=== PATIENT | female | born 1990 | race African-American/Black ===

== ENCOUNTER → 2016-05-28 | Outpatient (REF) | payer OTHER | LOC: M LAB REF 15:10 | PROVIDERS: ATTEND Advanced Practice Midwife | DX: O62.0 Primary inadequate contractions (principal) ==

== ENCOUNTER 2016-07-01 07:11 | Emergency (ER) | payer OTHER ==
[2016-07-01] MEDS ORDERED: ALBUTEROL SULFATE 2.5 MG/0.5 ML INH NEB SOLN As Ordered ONE (08:02)
--- NOTE | 2016-07-01 08:58 | EDDOCDS ---
Physician Documentation [facility] Name: Stephan Fuller Age: 25 yrs Sex: Female : 1990 Arrival Date: 07/01/2016 Time: 07:11 Bed I4 / M4 Private MD: Disposition: 07/01/16 08:46 Discharged to Home/Self Care. Impression: Acute upper respiratory infection, unspecified, Acute bronchospasm. - Condition is Stable. - Discharge Instructions: Medicines During , Metered Dose Inhaler with Spacer, Upper Respiratory Infection, Adult. - Prescriptions for Albuterol Sulfate 90 mcg/actuation Inhalation HFA Aerosol Inhaler - inhale 2 puff by INHALATION route every 4 hours As needed; 1 Inhaler. Saline Nasal 0.65 % Nasal - spray 2 sprays by INTRANASAL route every 2 hours As needed; 1 bottle. - Medication Reconciliation, Local Pharmacy Hours form. - Follow up: Aida De Dios [facility]; When: Call to arrange an appointment; Reason: Recheck today's complaints, Continuance of care. Follow up: Emergency Department; When: As needed; Reason: Trouble breathing, Worsening of conditions. Follow up: MORENO Cueva; Reason: Continuance of care. - Problem is new. - Symptoms have improved. Historical: - Allergies: No known drug Allergies; - Home Meds: 1. Vitamin Oral tab 1 tab once daily 2. pyridoxine 50 mg Oral tab as needed for Excessive Vomiting in (Last dose: 06/29/2016) 3. Albuterol Inhl 2 puffs PRN (Last dose: 06/30/2016 19:00) - PMHx: Asthma; - PSHx: D & C; - Social history: Smoking status: Patient states was never smoker of tobacco. No barriers to communication noted, The patient speaks fluent Malay, Speaks appropriately for age. - Family history: Not pertinent. - : The pt / caregiver states he / she is not on anticoagulants. Home medication list is obtained from the patient. - Exposure Risk Screening:: None identified. 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 6 in. (167.64 cm) (R); Pain 0/10; 08:56 BP 113 / 62; Pulse 82; Resp 16; Temp 97.5(T); Pulse Ox 97% on R/A; kr3 07:18 Body Mass Index 23.24 (65.32 kg, 167.64 cm) ck1 MDM: 07:42 Albuterol 2.5 mg Nebulizer once ordered. ar2 08:37 [facility] Payment Agreement was scanned into [employer] and attached to record. 5 08:37 Financial registration complete. jp5 08:46 MDI teaching with Spacer ordered. ar2 Administered Medications: 08:05 Drug: Albuterol 2.5 mg [albuterol sulfate 2.5 mg/0.5 mL solution for nebulization (0.5 js11 mL)] Route: Nebulizer; Signatures: Liana De Souza RN RN ck1 Stacy Malik,RICO RN kr3 Ilia Garcia, ROLANDO PAYessi ar2 Jalyn Cortes jp5 Perry Stewart js11 The chart was reviewed and I authenticate all verbal orders and agree with the evaluation and treatment provided.Attachments: 08:37 [facility] Payment Agreement jp5 MTDD
--- NOTE | 2016-07-01 08:58 | EDDOCDS ---
Nurse's Notes [facility] Name: Stephan Fuller Age: 25 yrs Sex: Female : 1990 Arrival Date: 07/01/2016 Time: 07:11 Bed I4 / M4 Private MD: Diagnosis: Acute upper respiratory infection, unspecified;Acute bronchospasm Presentation: 07/01 07:16 Presenting complaint: Patient states: Runny nose and "I can't breathe", since ck1 yesterday. Patient is 8 months . Adult Sepsis Screening: The patient does not have new or worsening altered mentation. Patient's respiratory rate is less than 22. Systolic blood pressure is greater than 100. Patient has a qSOFA score of 0- Negative Sepsis Screen. Suicide/Homicide risk assessment- the patient denies having any suicidal and/or homicidal ideations and does not present with any other emotional, behavioral or mental health complaints. Status: The patient is a dependent. Transition of care: patient was not received from another setting of care. 07:16 Acuity: MORE Level 4 ck1 07:16 Method Of Arrival: Walkin/Carried/Asstd ck1 Triage Assessment: 07:20 General: Appears in no apparent distress, comfortable, Behavior is appropriate for age, ck1 cooperative. Pain: Denies pain. HIV screening NA for this visit Offered previously. Respiratory: Respiratory effort is unlabored, Respiratory pattern is regular, symmetrical. : Denies cramping vaginal bleeding. Derm: Skin is intact, is healthy with good turgor, Skin is normal. 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 Vitamin Oral tab 1 tab once daily 2. pyridoxine 50 mg Oral tab as needed for Excessive Vomiting in (Last dose: 06/29/2016) 3. Albuterol Inhl 2 puffs PRN (Last dose: 06/30/2016 19:00) - PMHx: Asthma; - PSHx: D & C; - Social history: Smoking status: Patient states was never smoker of tobacco. No barriers to communication noted, The patient speaks fluent Danish, Speaks appropriately for age. - Family history: Not pertinent. - : The pt / caregiver states he / she is not on anticoagulants. Home medication list is obtained from the patient. - Exposure Risk Screening:: None identified. Screenin:30 Screening information is obtained from the patient. Fall risk: No risks identified. kr3 Assistance ADL's: requires no assistance with activities of daily living. Abuse/DV Screen: The patient / caregiver reports he/she is: not in a situation that causes fear, pain or injury. Nutritional screening: No deficits noted. Advance Directives: Currently, there is no health care proxy. home support is adequate. Assessment: 07:30 Reassessment: Patient appears in no apparent distress at this time. Pain: Denies pain. kr3 Neurological: Level of Consciousness is awake, alert. EENT: Reports nasal congestion. Respiratory: Airway is patent Respiratory effort is even, unlabored, Breath sounds are coarse bilaterally. Reports cough that is productive. Derm: Skin is normal. 08:57 Reassessment: Patient appears in no apparent distress at this time. General: Appears kr3 comfortable. Respiratory: Respiratory effort is even, unlabored. Derm: Skin is normal. Vital Signs: 07:18 BP 109 / 76; Pulse 96; Resp 18; Temp 96.0(O); Pulse Ox 98% on R/A; Weight 65.32 kg (R); ck1 Height 5 ft. 6 in. (167.64 cm) (R); Pain 0/10; 08:56 BP 113 / 62; Pulse 82; Resp 16; Temp 97.5(T); Pulse Ox 97% on R/A; kr3 07:18 Body Mass Index 23.24 (65.32 kg, 167.64 cm) ck1 Vitals: 07:18 Log In Time: July 01, 2016 at 07:11. ck1 07:30 Heart Tones 132BPM. kr3 ED Course: 07:13 Patient visited by Rom Johnson Reg. pm4 07:13 Patient moved to Waiting pm4 07:17 Triage Initiated ck1 07:20 Patient moved to I4 / M4 ck1 07:27 Ilia Garcia PA-C is PHCP. ar2 07:28 Gómez Persaud MD is Attending Physician. ar2 07:28 Patient visited by Ilia Garcia PA-C. ar2 07:30 The patient / caregiver is instructed regarding the plan of care and ED course. kr3 Accompanied by Family Member, Patient has correct armband on for positive identification. Bed in low position. Call light in reach. Side rails up X 1. 07:31 No IV's were initiated during this patient's visit. No procedures done that require kr3 assistance. 08:36 Patient visited by Alverto Alvarenga. [email or web address] 08:37 [facility] Payment Agreement was scanned into [employer] and attached to record. jp5 08:46 Aida De Dios OB is Referral Physician. ar2 08:46 MORENO Cueva is Referral Physician. ar2 Administered Medications: 08:05 Drug: Albuterol 2.5 mg [albuterol sulfate 2.5 mg/0.5 mL solution for nebulization (0.5 js11 mL)] Route: Nebulizer; RT: 08:05 Initial Med Neb Given as ordered Patient was instructed and evaluated on procedure js11 Patient tolerated procedure well without adverse effect. Oxygen is room air. Respiratory: Breath sounds are diminished bilaterally. Order Results: There are currently no results for this order. Outcome: 08:46 Discharge ordered by Provider. ar2 08:57 Discharge Assessment: patient administered narcotics - no. The following High Risk kr3 Discharge criteria are identified: None. Discharged to home ambulatory, with family. Condition: stable. Discharge instructions given to patient, Instructed on discharge instructions, follow up and referral plans. medication usage, Demonstrated understanding of instructions, medications, Pt was receptive of discharge instructions/ teaching. No special radiology studies were completed. Property sent home with patient. 08:58 Patient left the ED. kr3 Signatures: Liana De Souza,RN RN ck1 Stacy MalikRN RN kr3 Ilia Garcia PA-C PAYessi ar2 Perry Stewart js11 Alverto Alvarenga jml1 Jalyn Cortes jp5 Rom Johnson, Reg Reg pm4 MTDD
--- NOTE | 2016-07-03 09:59 | EDDOCDS ---
Nurse's Notes [facility] Name: Stephan Fuller Age: 25 yrs Sex: Female : 1990 Arrival Date: 07/01/2016 Time: 07:11 Bed I4 / M4 Private MD: Diagnosis: Acute upper respiratory infection, unspecified;Acute bronchospasm Presentation: 07/01 07:16 Presenting complaint: Patient states: Runny nose and "I can't breathe", since ck1 yesterday. Patient is 8 months . Adult Sepsis Screening: The patient does not have new or worsening altered mentation. Patient's respiratory rate is less than 22. Systolic blood pressure is greater than 100. Patient has a qSOFA score of 0- Negative Sepsis Screen. Suicide/Homicide risk assessment- the patient denies having any suicidal and/or homicidal ideations and does not present with any other emotional, behavioral or mental health complaints. Status: The patient is a dependent. Transition of care: patient was not received from another setting of care. 07:16 Acuity: MORE Level 4 ck1 07:16 Method Of Arrival: Walkin/Carried/Asstd ck1 Triage Assessment: 07:20 General: Appears in no apparent distress, comfortable, Behavior is appropriate for age, ck1 cooperative. Pain: Denies pain. HIV screening NA for this visit Offered previously. Respiratory: Respiratory effort is unlabored, Respiratory pattern is regular, symmetrical. : Denies cramping vaginal bleeding. Derm: Skin is intact, is healthy with good turgor, Skin is normal. 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 Vitamin Oral tab 1 tab once daily 2. pyridoxine 50 mg Oral tab as needed for Excessive Vomiting in (Last dose: 06/29/2016) 3. Albuterol Inhl 2 puffs PRN (Last dose: 06/30/2016 19:00) - PMHx: Asthma; - PSHx: D & C; - Social history: Smoking status: Patient states was never smoker of tobacco. No barriers to communication noted, The patient speaks fluent Swedish, Speaks appropriately for age. - Family history: Not pertinent. - : The pt / caregiver states he / she is not on anticoagulants. Home medication list is obtained from the patient. - Exposure Risk Screening:: None identified. Screenin:30 Screening information is obtained from the patient. Fall risk: No risks identified. kr3 Assistance ADL's: requires no assistance with activities of daily living. Abuse/DV Screen: The patient / caregiver reports he/she is: not in a situation that causes fear, pain or injury. Nutritional screening: No deficits noted. Advance Directives: Currently, there is no health care proxy. home support is adequate. Assessment: 07:30 Reassessment: Patient appears in no apparent distress at this time. Pain: Denies pain. kr3 Neurological: Level of Consciousness is awake, alert. EENT: Reports nasal congestion. Respiratory: Airway is patent Respiratory effort is even, unlabored, Breath sounds are coarse bilaterally. Reports cough that is productive. Derm: Skin is normal. 08:57 Reassessment: Patient appears in no apparent distress at this time. General: Appears kr3 comfortable. Respiratory: Respiratory effort is even, unlabored. Derm: Skin is normal. Vital Signs: 07:18 BP 109 / 76; Pulse 96; Resp 18; Temp 96.0(O); Pulse Ox 98% on R/A; Weight 65.32 kg (R); ck1 Height 5 ft. 6 in. (167.64 cm) (R); Pain 0/10; 08:56 BP 113 / 62; Pulse 82; Resp 16; Temp 97.5(T); Pulse Ox 97% on R/A; kr3 07:18 Body Mass Index 23.24 (65.32 kg, 167.64 cm) ck1 Vitals: 07:18 Log In Time: July 01, 2016 at 07:11. ck1 07:30 Heart Tones 132BPM. kr3 ED Course: 07:13 Patient visited by Rom Johnson Reg. pm4 07:13 Patient moved to Waiting pm4 07:17 Triage Initiated ck1 07:20 Patient moved to I4 / M4 ck1 07:27 Ilia Garcia PA-C is PHCP. ar2 07:28 Gómez Persaud MD is Attending Physician. ar2 07:28 Patient visited by Ilia Garcia PA-C. ar2 07:30 The patient / caregiver is instructed regarding the plan of care and ED course. kr3 Accompanied by Family Member, Patient has correct armband on for positive identification. Bed in low position. Call light in reach. Side rails up X 1. 07:31 No IV's were initiated during this patient's visit. No procedures done that require kr3 assistance. 08:36 Patient visited by Alverto Alvarenga. silvestre 08:37 [facility] Payment Agreement was scanned into [employer] and attached to record. jp5 08:46 Aida De Dios OB is Referral Physician. ar2 08:46 JEREMI Cueva is Referral Physician. ar2 14:59 T-Sheet-- Draft Copy was scanned into [employer] and attached to record. gb Administered Medications: 08:05 Drug: Albuterol 2.5 mg [albuterol sulfate 2.5 mg/0.5 mL solution for nebulization (0.5 js11 mL)] Route: Nebulizer; RT: 08:05 Initial Med Neb Given as ordered Patient was instructed and evaluated on procedure js11 Patient tolerated procedure well without adverse effect. Oxygen is room air. Respiratory: Breath sounds are diminished bilaterally. Order Results: There are currently no results for this order. Outcome: 08:46 Discharge ordered by Provider. ar2 08:57 Discharge Assessment: patient administered narcotics - no. The following High Risk kr3 Discharge criteria are identified: None. Discharged to home ambulatory, with family. Condition: stable. Discharge instructions given to patient, Instructed on discharge instructions, follow up and referral plans. medication usage, Demonstrated understanding of instructions, medications, Pt was receptive of discharge instructions/ teaching. No special radiology studies were completed. Property sent home with patient. 08:58 Patient left the ED. kr3 Signatures: Jeanie Garcia, Reg Reg gb Liana De Souza,RN RN ck1 Stayc Malik,RN RN kr3 Ilia Garcia, PA-C PA-C ar2 Perry Stewart js11 Alverto Alvarenga jml1 Jalyn Cortes jp5 Rom Johnson, Reg Reg pm4 Chart Complete MTDD
--- NOTE | 2016-07-03 09:59 | EDDOCDS ---
Physician Documentation [facility] Name: Stephan Fuller Age: 25 yrs Sex: Female : 1990 Arrival Date: 07/01/2016 Time: 07:11 Bed I4 / M4 Private MD: Disposition: 07/01/16 08:46 Discharged to Home/Self Care. Impression: Acute upper respiratory infection, unspecified, Acute bronchospasm. - Condition is Stable. - Discharge Instructions: Medicines During , Metered Dose Inhaler with Spacer, Upper Respiratory Infection, Adult. - Prescriptions for Albuterol Sulfate 90 mcg/actuation Inhalation HFA Aerosol Inhaler - inhale 2 puff by INHALATION route every 4 hours As needed; 1 Inhaler. Saline Nasal 0.65 % Nasal - spray 2 sprays by INTRANASAL route every 2 hours As needed; 1 bottle. - Medication Reconciliation, Local Pharmacy Hours form. - Follow up: Aida De Dios [facility]; When: Call to arrange an appointment; Reason: Recheck today's complaints, Continuance of care. Follow up: Emergency Department; When: As needed; Reason: Trouble breathing, Worsening of conditions. Follow up: MORENO Cueva; Reason: Continuance of care. - Problem is new. - Symptoms have improved. Historical: - Allergies: No known drug Allergies; - Home Meds: 1. Vitamin Oral tab 1 tab once daily 2. pyridoxine 50 mg Oral tab as needed for Excessive Vomiting in (Last dose: 06/29/2016) 3. Albuterol Inhl 2 puffs PRN (Last dose: 06/30/2016 19:00) - PMHx: Asthma; - PSHx: D & C; - Social history: Smoking status: Patient states was never smoker of tobacco. No barriers to communication noted, The patient speaks fluent Telugu, Speaks appropriately for age. - Family history: Not pertinent. - : The pt / caregiver states he / she is not on anticoagulants. Home medication list is obtained from the patient. - Exposure Risk Screening:: None identified. 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 6 in. (167.64 cm) (R); Pain 0/10; 08:56 BP 113 / 62; Pulse 82; Resp 16; Temp 97.5(T); Pulse Ox 97% on R/A; kr3 07:18 Body Mass Index 23.24 (65.32 kg, 167.64 cm) ck1 MDM: 07:42 Albuterol 2.5 mg Nebulizer once ordered. ar2 08:37 [facility] Payment Agreement was scanned into [employer] and attached to record. jp5 08:37 Financial registration complete. jp5 08:46 MDI teaching with Spacer ordered. ar2 14:59 T-Sheet-- Draft Copy was scanned into [employer] and attached to record. gb Administered Medications: 08:05 Drug: Albuterol 2.5 mg [albuterol sulfate 2.5 mg/0.5 mL solution for nebulization (0.5 js11 mL)] Route: Nebulizer; Signatures: Jeanie Garcia, Reg Reg gb Liana De Souza,RN RN ck1 Stacy Malik,RN RN kr3 Ilia Garcia, PAYessi PAYessi ar2 Jalyn Cortes jp5 Perry Stewart js11 The chart was reviewed and I authenticate all verbal orders and agree with the evaluation and treatment provided.Attachments: 08:37 [facility] Payment Agreement 5 14:59 T-Sheet-- Draft Copy gb Chart Complete MTDD
--- NOTE | 2016-07-03 09:59 | EDDOCDS ---
Physician Documentation [facility] Name: Stephan Fuller Age: 25 yrs Sex: Female : 1990 Arrival Date: 07/01/2016 Time: 07:11 Bed I4 / M4 Private MD: Disposition: 07/01/16 08:46 Discharged to Home/Self Care. Impression: Acute upper respiratory infection, unspecified, Acute bronchospasm. - Condition is Stable. - Discharge Instructions: Medicines During , Metered Dose Inhaler with Spacer, Upper Respiratory Infection, Adult. - Prescriptions for Albuterol Sulfate 90 mcg/actuation Inhalation HFA Aerosol Inhaler - inhale 2 puff by INHALATION route every 4 hours As needed; 1 Inhaler. Saline Nasal 0.65 % Nasal - spray 2 sprays by INTRANASAL route every 2 hours As needed; 1 bottle. - Medication Reconciliation, Local Pharmacy Hours form. - Follow up: Aida De Dios OB; When: Call to arrange an appointment; Reason: Recheck today's complaints, Continuance of care. Follow up: Emergency Department; When: As needed; Reason: Trouble breathing, Worsening of conditions. Follow up: MORENO Cueva; Reason: Continuance of care. - Problem is new. - Symptoms have improved. Historical: - Allergies: No known drug Allergies; - Home Meds: 1. Vitamin Oral tab 1 tab once daily 2. pyridoxine 50 mg Oral tab as needed for Excessive Vomiting in (Last dose: 06/29/2016) 3. Albuterol Inhl 2 puffs PRN (Last dose: 06/30/2016 19:00) - PMHx: Asthma; - PSHx: D & C; - Social history: Smoking status: Patient states was never smoker of tobacco. No barriers to communication noted, The patient speaks fluent Bulgarian, Speaks appropriately for age. - Family history: Not pertinent. - : The pt / caregiver states he / she is not on anticoagulants. Home medication list is obtained from the patient. - Exposure Risk Screening:: None identified. 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 6 in. (167.64 cm) (R); Pain 0/10; 08:56 BP 113 / 62; Pulse 82; Resp 16; Temp 97.5(T); Pulse Ox 97% on R/A; kr3 07:18 Body Mass Index 23.24 (65.32 kg, 167.64 cm) ck1 MDM: 07:42 Albuterol 2.5 mg Nebulizer once ordered. ar2 08:37 [facility] Payment Agreement was scanned into [employer] and attached to record. jp5 08:37 Financial registration complete. jp5 08:46 MDI teaching with Spacer ordered. ar2 14:59 T-Sheet-- Draft Copy was scanned into [employer] and attached to record. gb Administered Medications: 08:05 Drug: Albuterol 2.5 mg [albuterol sulfate 2.5 mg/0.5 mL solution for nebulization (0.5 js11 mL)] Route: Nebulizer; Signatures: Jeanie Garcia, Reg Reg gb Liana De Souza,RN RN ck1 Stacy Malik,RN RN kr3 Ilia Garcia, PAYessi PAYessi ar2 Jalyn Cortes jp5 Perry Stewart js11 The chart was reviewed and I authenticate all verbal orders and agree with the evaluation and treatment provided.Attachments: 08:37 [facility] Payment Agreement 5 14:59 T-Sheet-- Draft Copy gb Chart Complete MTDD
== END 2016-07-01 08:58 | disposition home or self-care (01) ==
LOC: M ED 07:11
DX: J06.9 Acute upper respiratory infection, unspecified (principal); J98.01 Acute bronchospasm; J45.909 Unspecified asthma, uncomplicated; Z79.899 Other long term (current) drug therapy

== ENCOUNTER 2016-07-04 18:39 | Outpatient (CLI) | payer OTHER ==
[~2016-07-04] VITALS: Ht 167.6 cm; Wt 79.0 kg
[2016-07-04] MEDS ORDERED: PRENTAB9 PO (20:10)
[2016-07-04 20:31] LABS: AMPHETAMINES LEVEL URINE NEGATIVE (NEGATIVE); BENZODIAZEPINES URINE NEGATIVE (NEGATIVE); COCAINE METABOLITE URINE NEGATIVE (NEGATIVE); CONTROL LINE INT CTR LINE PRESENT; METHADONE URINE NEGATIVE (NEGATIVE); OPIATES URINE NEGATIVE (NEGATIVE); TRICYCLIC ANTIDEPRESS URINE NEGATIVE (NEGATIVE)
== END 2016-07-04 20:50 | disposition home or self-care (01) ==
LOC: M LDO 18:39
PROVIDERS: ATTEND Advanced Practice Midwife
DX: O47.03 False labor before 37 completed weeks of gestation, third trimester (principal); O26.853 Spotting complicating pregnancy, third trimester; Z3A.35 35 weeks gestation of pregnancy

== ENCOUNTER 2016-08-09 13:45 | Inpatient (IN) | payer OTHER ==
[2016-08-09] VITALS (10 sets, daily range): BP systolic 119–152; BP diastolic 63–91
[~2016-08-09] VITALS: Ht 157.5 cm; Wt 72.0 kg
[~2016-08-09 13:45] MED LIST: PRENTAB9 PO
[2016-08-09] MEDS ORDERED: LACTATED RINGER'S 1000 ML IV STA (16:57)
[2016-08-09] MEDS ORDERED: AMPICILLIN SOD 2 GM in D5W MINI-BAG PLUS 100 ML IV STA (17:04)
[2016-08-09] MEDS ORDERED: BUTORPHANOL 2 MG/ML INJ (J0595) IV ONE (18:00)
[2016-08-09 18:09] LABS: MEAN CORPUSCULAR HEMOGLOBIN 30.9 pg (27.0-33.0); MEAN CORPUSCULAR HGB CONC 34.4 g/dl (32.0-36.5); MEAN CORPUSCULAR VOLUME 89.8 fl (80.0-96.0); RED CELL DISTRIBUTION WIDTH 12.2 % (11.5-14.5); WHITE BLOOD COUNT 8.6 K/mm3 (4.0-10.0)
[2016-08-09] MEDS: LR 1,000 ML IV SCH (18:31)
[2016-08-09] MEDS ORDERED: OXYTOCIN 30 UNITS IN 0.9% NaCl 500ML IV BAG (J2590) As Ordered ONE ×2 (19:18→22:08)
[2016-08-09] MEDS ORDERED: MEASLES,MUMPS,RUBELLA VACCINE INJ (MMR-II) (90707) SC SCH (19:45)
[2016-08-09] MEDS ORDERED: RHOGAM 300 MCG (1500 IU) INJ (J2790) IM SCH (19:45)
[2016-08-09] MEDS ORDERED: OXYTOCIN DRIP 30 UNITS in APPROPRIATE DILUENT 1 EA IV SCH (19:45)
--- NOTE | 2016-08-09 19:54 | DNPDOC ---
Delivery Note Delivery Note DATE OF DELIVERY: Aug 09, 2016 at 1919 PREDELIVERY DIAGNOSIS: 40w2d gestation and labor. POST DELIVERY DIAGNOSIS: Delivered. PROCEDURE: Spontaneous vaginal delivery NURSING SURGICAL SERVICES DIRECTOR: Dr. Apolinar Martino MD ANESTHESIA: 2mg IV stadol x 1 dose ESTIMATED BLOOD LOSS: 150 mL. FINDINGS: 6 pound 11 ounce female , Score 9/9, nuchal cord times 1. DELIVERY SUMMARY: Stephan is a 25yo G9 now [id number] who was admitted to L&D for active labor. She had an uncomplicated of a viable female at 1919 on 09 August 2016 at 40w2d. Head delivered OA, restituted MICHAEL. One nuchal cord delivered through. Right anterior shoulder delivered followed by posterior shoulder and corpus. Cord clamped x2 and cut by FOB. mouth/nares bulb suctioned. Spontaneous cry noted. Baby placed on mother's abdomen. Apgars 9/9, weight 3022g or [id number]. Cord blood obtained due to maternal blood type of O pos. With gentle downward guidance and suprapubic pressure, placenta delivered spontaneously and intact with a centrally inserted cord. Fundal massage until uterine fundus firm ; fundus at U-1cm. Pitocin 30 units IV bolus administered. Inspection of perineum and vaginal wall revealed no tears. Mom and infant in stable condition. Dr. Apolinar Martino MD BradfordAPOLINAR Grullon MD Aug 09, 2016 19:54
[2016-08-09] MEDS: IBUPROFEN 800 MG TAB PO PRN (20:55)
[2016-08-09] MEDS: DOCUSATE SODIUM 100 MG CAP PO SCH (21:00)
--- NOTE | 2016-08-09 21:33 | HPEPDOC ---
Obstetrical History & Physical General Date of Admission Aug 09, 2016 at 16:51 History of Present Illness Stephan is a 25yo [id number] with SIUP at 40w2d by 9wk u/s who presents this evening with painful regular ctx. No LOF. No vb. Good movement. PMhx: asthma, proair BID. Sickle cell trait. course: UTI and BV treated in May Chief Complaint: Contractions, term Information Provided By: Patient Care Care: Good Care Dating Final EDC: Aug 07, 2016 Final EDC by: 1st trimester (US) Antepartum Course Diagnos(e)s course: UTI and BV treated in May Height (inches): 66 Pre- weight (lbs.): 132 Admission Weight (lbs.): 170 Change in Weight (lbs.): 38 Past Medical History Past Obstetrical History #1: Past Obstetrical History: Multigravida (hx of 5 EABs) Date of Delivery: Apr 15, 2010 Gestation: 40 Type of Delivery: Spontaneous Vaginal Del. Sex of Infant: Male Complications: No Past Obstetrical History #2: Past Obstetrical History: Multigravida Date of Delivery: Jul 15, 2011 Gestation: 40 Type of Delivery: Spontaneous Vaginal Del. Sex of : Male Complications: No Past Obstetrical History #3: Past Obstetrical History: Multigravida Date of Delivery: Jul 14, 2014 Gestation: 40 Type of Delivery: Spontaneous Vaginal Del. Sex of : Female Complications: No BMET History: No pertinent history Past Medical History Medical History PMhx: asthma, proair BID. Sickle cell trait. Surgical History: Denies/None Family History Significant Family History: No pertinent family hx Social History Marital Status: Family situation: Spouse/partner home Psychosocial History: No pertinent psych hx * Smoker: non-smoker Alcohol: Denies Drugs: denies Imunizations Tdap status: declined Influenza Status: declined Allergies Coded Allergies: No Known Allergies (Unverified , 07/04/16) Medications Scheduled Multivitamins/ ( 27-0.8 mg) 1 Tab Tab 1 TAB PO DAILY Physical Examination Physical Examination GENERAL: Alert and oriented times three. BREAST: . ABDOMEN: Gravid and non-tender to touch. FETUS: Is vertex (VTX) by sterile vaginal examination (SVE) HEART RATE: Regular rate and rhythm. LUNGS: Clear to auscultation (CTA). EXTREMITIES: No edema Vital Signs/I&O Vital Signs Date Time Temp Pulse Resp B/P Pulse Ox O2 Delivery O2 Flow Rate FiO2 08/09/16 20:37 98.1 78 18 141/77 Laboratory Data 24H LABS Laboratory Tests 2 08/09/16 17:27: 08/09/16 17:47: Serology Scanned Report Hepatitis B Testing CBC/BMP Laboratory Tests 08/09/16 17:27 Red Blood Count 4.00, Mean Corpuscular Volume 89.8, Mean Corpuscular Hemoglobin 30.9, Mean Corpuscular Hemoglobin Concent 34.4, Red Cell Distribution Width 12.2 Pertinent Laboratoy Data Blood Type: O+ RBC Antibody Screen: Negative HIV: Negative Hepatitis B: Negative Hepatitis C: Unknown Rapid Plasma Reagin: Nonreactive Rubella: Immune Varicella: Immune Chlamydia/Gonorrhea: Negative Group B Streptococcus: Negative Glucose Tolerance Test: 109 Anatomy Ultrasound Ultrasound Date: Apr 14, 2016 Placenta Location: Posterior Normal Anatomy: Yes Placenta Previa: No Steroid Therapy Steroid Therapy: No Vaginal Examination Dilation: 4 cm Effacement: 80+% Station: -2 Cervical Consistency: Soft Cervical Position: Anterior Presentation: Cephalic presentation Assessment Heart Rate (FHR): 140 Variability: Moderate Accelerations: Positive Decelerations: None Tocometer Contractions: Yes Frequency: regular, every 2-5 min. Duration: greater than 90 seconds Strength: palpated as moderate Assessment/Plan Assessment Stephan is a 25yo [id number] with SIUP at 40w2d by 9wk u/s in active labor. SCE 4/80/-2, regular ctx. Cat I FHRT. Cephalic by SCE. GBS neg. PMhx: asthma, proair BID. Sickle cell trait. course: UTI and BV treated in May Plan Admit and orient. Home Aide and consent. Diet: clear liquids Group B Streptococcus (GBS) neg Labs and intravenous (IV) per unit protocol. Lactated Ringers (LR): Bolus 1000 mL, then at 125 mL/hr. Anticipate normal spontaneous delivery () Dr. Apolinar Martino MD [place] APOLINAR LORA MD Aug 09, 2016 21:33
[2016-08-09] MEDS ORDERED: AMPICILLIN SOD 1 GM in D5W MINI-BAG PLUS 50 ML IV SCH (22:00)
[2016-08-09] MEDS ORDERED: METHYLERGONOVINE MALEATE 0.2 MG/ML VIAL (J2210) As Ordered ONE ×3 (22:08→22:27)
[2016-08-09] MEDS ORDERED: OXYTOCIN INJ 10 UNITS/ML VIAL (J2590) As Ordered ONE (22:10)
[2016-08-09] MEDS ORDERED: miSOPROStol 200 MCG TAB (S0191) As Ordered ONE (22:20)
[2016-08-09] MEDS: ACETAMINOPHEN 500 MG TAB PO PRN (23:25)
--- NOTE | 2016-08-09 23:25 | IPNPDOC ---
Text Note Date of Service The patient was seen on 08/09/16. NOTE Called to room for PP bleeding Pt resting in bed, appeared comfortable. Mentating well. Soaked through 2 an-pads and chucks- visually ebl appeared approx 300ml. RN reported fundus would firm with massage but then become boggy again. Manual sweep performed with clot removed and fundus firmed even more. 1000mcg cytotec placed rectally, 0.2mg methergine IM given x1. Vitals wnl. Total EBL for PPH: 400ml. Will continue to monitor closely. Dr. Apolinar Martino MD [place] [facility] VS,Thang, I+O VS, Thang, I+O Laboratory Tests 08/09/16 17:27 Red Blood Count 4.00, Mean Corpuscular Volume 89.8, Mean Corpuscular Hemoglobin 30.9, Mean Corpuscular Hemoglobin Concent 34.4, Red Cell Distribution Width 12.2 Vital Signs Date Time Temp Pulse Resp B/P Pulse Ox O2 Delivery O2 Flow Rate FiO2 08/09/16 22:21 98.7 117 18 152/63 97 Room Air APOLINAR MARTINO MD Aug 09, 2016 23:25
[2016-08-09] MEDS ORDERED: miSOPROStol 200 MCG TAB (S0191) PR ONE (23:30)
[2016-08-09] MEDS ORDERED: METHYLERGONOVINE MALEATE 0.2 MG/ML VIAL (J2210) IM ONE (23:30)
[2016-08-10] MEDS: LR 1,000 ML IV SCH ×2 (00:57→07:27)
[2016-08-10 01:49] VITALS: BP 115/63
[2016-08-10 06:17] VITALS: BP 118/77
[2016-08-10 07:09] LABS: MEAN CORPUSCULAR HEMOGLOBIN 31.4 pg (27.0-33.0); MEAN CORPUSCULAR HGB CONC 35.1 g/dl (32.0-36.5); MEAN CORPUSCULAR VOLUME 89.4 fl (80.0-96.0); RED CELL DISTRIBUTION WIDTH 12.2 % (11.5-14.5); WHITE BLOOD COUNT 10.6 K/mm3 (4.0-10.0)
[2016-08-10] MEDS: PRENATAL VITAMIN TAB PO SCH (08:28)
[2016-08-10] MEDS: DOCUSATE SODIUM 100 MG CAP PO SCH ×2 (08:28→20:55)
[2016-08-10] MEDS: ACETAMINOPHEN 500 MG TAB PO PRN ×2 (08:28→15:39)
[2016-08-10] MEDS: IBUPROFEN 800 MG TAB PO PRN ×2 (09:15→20:55)
[2016-08-10 10:25] VITALS: BP 134/61
[2016-08-10 14:21] VITALS: BP 121/55
[2016-08-10 18:00] VITALS: BP 135/60
[2016-08-10 22:23] VITALS: BP 125/62
[2016-08-11 05:52] VITALS: BP 126/81
[2016-08-11] MEDS: DOCUSATE SODIUM 100 MG CAP PO SCH (08:23)
[2016-08-11] MEDS: PRENATAL VITAMIN TAB PO SCH (08:23)
--- NOTE | 2016-08-11 09:15 | IPNPDOC ---
Text Note Date of Service The patient was seen on 08/11/16. NOTE PPD#2 S: Stephan is a 25yo [id number] s/p uncomplicated at 40w2d after presenting in active labor. She has no complaints this am, lochia minimal, voiding well, ambulating without issues. without issues. O; Vitals wnl, afebrile Gen: A&O x3, sitting comfortably Cardiac: S1S2 present, no murmur Lungs: CTAB, no w/c/r Abdomen; FF @U-2cm, abdomen soft/non-distended/non-tender Ext: no pain with palpation of calves CBC on 08/10 Hbg 10.3 Hct 29.4 WBC 10.3 Plat 195 A: Stephan is a 25yo [id number] s/p uncomplicated at 40w2d after presenting in active labor. She had post- bleeding treated with methergine and cytotec and follow-up H/H 10.3/29.4. Hemodynamically stable without evidence of infection. P: -discharge to home today vs boarding if needs to stay -home meds given: motrin, lanolin, minipill -follow-up PP visit in [address] Apolinar Ojeda MD [place] Thang RIZZO, I+O VSThang I+O Vital Signs Date Time Temp Pulse Resp B/P Pulse Ox O2 Delivery O2 Flow Rate FiO2 08/11/16 05:52 98.0 94 18 126/81 08/10/16 01:49 96 Room Air APOLINAR OJEDA MD Aug 11, 2016 09:15
[2016-08-11] MEDS ORDERED: IBUP-1114 PO (14:13)
[2016-08-11] MEDS ORDERED: ACET50TA PO (14:13)
== END 2016-08-11 14:25 | disposition home or self-care (01) | DRG 774 ==
LOC: M LDO 13:45 → M LDI 16:51 → M OBS 21:43
PROVIDERS: ADMIT Obstetrics & Gynecology; ATTEND Obstetrics & Gynecology
PROC: 10E0XZZ Delivery of Products of Conception, External Approach (ICD-10-PCS; principal; 2016-08-09)
DX: O48.0 Post-term pregnancy (principal); O72.1 Other immediate postpartum hemorrhage; O99.52 Diseases of the respiratory system complicating childbirth; Z3A.40 40 weeks gestation of pregnancy; J45.909 Unspecified asthma, uncomplicated; Z79.51 Long term (current) use of inhaled steroids; O69.81X0 Labor and delivery complicated by cord around neck, without compression, not applicable or unspecified; Z37.0 Single live birth

== ENCOUNTER → 2016-11-02 | Outpatient (CLI) | payer OTHER ==
[~2016-11-02] MED LIST changes: +ACET50TA PO; +IBUP-1114 PO
== END ==
LOC: M RAD 18:02
PROVIDERS: ATTEND Advanced Practice Midwife
DX: N63 Unspecified lump in breast (principal)

== ENCOUNTER 2017-01-18 09:02 | Emergency (ER) | payer OTHER ==
[2017-01-18 10:03] LABS: MEAN CORPUSCULAR HEMOGLOBIN 29.5 pg (27.0-33.0); MEAN CORPUSCULAR HGB CONC 34.3 g/dl (32.0-36.5); MEAN CORPUSCULAR VOLUME 85.9 fl (80.0-96.0); PLATELET COUNT, AUTOMATED 206 k/mm3 (150-450); RED CELL DISTRIBUTION WIDTH 14.6 % (11.5-14.5); WHITE BLOOD COUNT 4.3 K/mm3 (4.0-10.0)
[2017-01-18] MEDS ORDERED: NS 1,000 ML IV ONE (10:15)
[2017-01-18] MEDS ORDERED: METOCLOPRAMIDE INJ 10MG/2ML VIAL (J2765) IV ONE (10:15)
[2017-01-18] MEDS ORDERED: ACETAMINOPHEN 325 MG TAB PO ONE (10:15)
[2017-01-18 10:22] LABS: BASO % 0.2 % (0.0-1.0); EOS # 0.2 K/mm3 (0.0-0.50); EOS % 5.1 % (0.0-3.0); LARGE UNSTAINED CELL # 0.1 K/mm3 (0.0-0.4); LARGE UNSTAINED CELL % 1.3 % (0.0-4.0); LYMPH # 1.1 K/mm3 (1.5-6.5); LYMPH % 30.2 % (24.0-44.0); MONO # 0.1 K/mm3 (0.0-0.8); MONO % 3.8 % (0.0-5.0); NEUTROPHILS # 2.2 K/mm3 (1.8-7.7); NEUTROPHILS % 59.3 % (36.0-66.0)
[2017-01-18 10:27] LABS: ALBUMIN 3.8 GM/DL (3.2-5.2); ALBUMIN/GLOBULIN RATIO 0.86 (1.00-1.93); ALKALINE PHOSPHATASE 53 U/L (45-117); ALT/SGPT 21 U/L (12-78); ANION GAP 10 MEQ/L (8-16); AST/SGOT 18 U/L (15-37); BILIRUBIN,DIRECT < 0.1 MG/DL (0.0-0.2); BILIRUBIN,TOTAL 0.3 MG/DL (0.2-1.0); BLOOD UREA NITROGEN 8 MG/DL (7-18); CARBON DIOXIDE LEVEL 23 MEQ/L (21-32); CHLORIDE LEVEL 108 MEQ/L (98-107); CREATININE FOR GFR 0.61 MG/DL (0.55-1.02); GLOMERULAR FILTRATION RATE > 60.0 (>60); GLUCOSE, FASTING 86 MG/DL (70-105); POTASSIUM SERUM 3.4 MEQ/L (3.5-5.1); SODIUM LEVEL 141 MEQ/L (136-145); TOTAL PROTEIN 8.2 GM/DL (6.4-8.2)
--- NOTE | 2017-01-18 12:05 | REP ---
Clinical: Vaginal bleeding. Dating and viability. Technique: Transabdominal and transvaginal first trimester obstetrical ultrasound with color Doppler evaluation. Findings: Single live early intrauterine is appreciated. Gestational sac with yolk sac and pole identified. Mazon-rump length of 3 mm corresponds to 6 weeks 0 days gestational age with estimated date of delivery 09/13/2017 . heart rate equals 90 beats per minute. A moderate subchorionic hemorrhage is identified posterior to the gestational sac measuring 4.5 x 1.5 x 4.1 cm. The maternal ovaries are normal in appearance and vascularity. Right ovary measures 4.4 x 2.5 x 2.3 cm; RI = 0.45. Left ovary measures 3.3 x 1.5 x 2.1 cm; RI = 0.40. Trace pelvic free fluid nonspecific. Impression: 1. Single live early intrauterine at 6 weeks 0 days gestational age. 2. Moderate subchorionic hemorrhage is appreciated along with mild bradycardia. Close clinical observation may be warranted. 3. Complete anatomical assessment should be performed and 19-20 weeks. Signed by Trevon Vela MD 01/18/2017 11:57 A
[2017-01-18] MEDS ORDERED: MACR100C43 PO (12:12)
[2017-01-18] MEDS ORDERED: NITROFURANTOIN (MACROBID) 100 MG CAP PO ONE (12:15)
[2017-01-18 12:19] VITALS: BP 150/76
[2017-01-18 15:19] LABS: DIFF SLIDE NUMBER 216
== END 2017-01-18 12:25 | disposition home or self-care (01) ==
LOC: M ED 09:02
DX: O20.8 Other hemorrhage in early pregnancy (principal); O23.41 Unspecified infection of urinary tract in pregnancy, first trimester; Z3A.01 Less than 8 weeks gestation of pregnancy
CPT/HCPCS: 76801; 76817; 80048; 80076; 81001; 84702; 85027; 86850; 86900; 86901; 87088; 87186; 87210; 87491; 87591; 93976; 96374; 99284; J2765

== ENCOUNTER 2017-02-04 07:34 | Emergency (ER) | payer OTHER ==
[~2017-02-04] VITALS: Ht 167.6 cm; Wt 64.1 kg
[~2017-02-04 07:34] MED LIST changes: +MACR100C43 PO
[2017-02-04] MEDS ORDERED: PRENTAB40 PO (07:47)
[2017-02-04] MEDS ORDERED: diphenhydrAMINE INJ 50MG/ML VIAL (J1200) IV ONE (09:00)
[2017-02-04] MEDS ORDERED: METOCLOPRAMIDE INJ 10MG/2ML VIAL (J2765) IV ONE (09:00)
[2017-02-04] MEDS ORDERED: ACETAMINOPHEN 325 MG TAB PO ONE (09:00)
[2017-02-04] MEDS ORDERED: NS 1,000 ML IV ONE (09:00)
[2017-02-04 09:28] LABS: BASO % 0.2 % (0.0-1.0); EOS # 0.1 K/mm3 (0.0-0.50); EOS % 1.4 % (0.0-3.0); LARGE UNSTAINED CELL % 0.6 % (0.0-4.0); LYMPH # 0.7 K/mm3 (1.5-6.5); LYMPH % 11.9 % (24.0-44.0); MEAN CORPUSCULAR HEMOGLOBIN 30.5 pg (27.0-33.0); MEAN CORPUSCULAR HGB CONC 36.1 g/dl (32.0-36.5); MEAN CORPUSCULAR VOLUME 84.5 fl (80.0-96.0); MONO # 0.1 K/mm3 (0.0-0.8); MONO % 2.1 % (0.0-5.0); NEUTROPHILS # 4.9 K/mm3 (1.8-7.7); NEUTROPHILS % 83.8 % (36.0-66.0); PLATELET COUNT, AUTOMATED 298 k/mm3 (150-450); RED CELL DISTRIBUTION WIDTH 14.3 % (11.5-14.5); WHITE BLOOD COUNT 5.9 K/mm3 (4.0-10.0)
[2017-02-04 09:43] LABS: ALBUMIN 4.3 GM/DL (3.2-5.2); ALBUMIN/GLOBULIN RATIO 0.91 (1.00-1.93); ALKALINE PHOSPHATASE 65 U/L (45-117); ALT/SGPT 25 U/L (12-78); ANION GAP 11 MEQ/L (8-16); AST/SGOT 24 U/L (15-37); BILIRUBIN,DIRECT 0.2 MG/DL (0.0-0.2); BILIRUBIN,TOTAL 0.5 MG/DL (0.2-1.0); BLOOD UREA NITROGEN 9 MG/DL (7-18); CALCIUM LEVEL 9.6 MG/DL (8.5-10.1); CARBON DIOXIDE LEVEL 23 MEQ/L (21-32); CHLORIDE LEVEL 110 MEQ/L (98-107); CREATININE FOR GFR 0.76 MG/DL (0.55-1.02); GLOMERULAR FILTRATION RATE > 60.0 (>60); GLUCOSE, FASTING 96 MG/DL (70-105); POTASSIUM SERUM 3.7 MEQ/L (3.5-5.1); SODIUM LEVEL 144 MEQ/L (136-145)
[2017-02-04 10:27] VITALS: BP 133/81
[2017-02-04] MEDS ORDERED: REGL10TA6 PO (10:27)
[2017-02-05] MEDS ORDERED: ZOFR4TAB3 PO (14:34)
== END 2017-02-04 10:36 | disposition home or self-care (01) ==
LOC: M ED 07:34
DX: O21.0 Mild hyperemesis gravidarum (principal); Z3A.08 8 weeks gestation of pregnancy
CPT/HCPCS: 80048; 80076; 83690; 84702; 85025; 86901; 96374; 96375; 99283; J1200; J2765

== ENCOUNTER 2017-02-05 11:02 | Emergency (ER) | payer OTHER ==
[~2017-02-05] VITALS: Ht 162.6 cm; Wt 61.8 kg
[~2017-02-05 11:02] MED LIST changes: +PRENTAB40 PO; +REGL10TA6 PO
[2017-02-05] MEDS ORDERED: NS 1,000 ML IV ONE (11:45)
[2017-02-05] MEDS ORDERED: PROMETHAZINE INJ 25 MG/ML VIAL (J2550) IV ONE (11:45)
[2017-02-05 12:09] LABS: BASO % 0.3 % (0.0-1.0); EOS # 0.1 K/mm3 (0.0-0.50); EOS % 1.2 % (0.0-3.0); LARGE UNSTAINED CELL # 0.1 K/mm3 (0.0-0.4); LARGE UNSTAINED CELL % 1.2 % (0.0-4.0); LYMPH # 1.1 K/mm3 (1.5-6.5); LYMPH % 18.4 % (24.0-44.0); MEAN CORPUSCULAR HEMOGLOBIN 30.4 pg (27.0-33.0); MEAN CORPUSCULAR VOLUME 84.5 fl (80.0-96.0); MONO # 0.3 K/mm3 (0.0-0.8); MONO % 4.6 % (0.0-5.0); NEUTROPHILS # 4.4 K/mm3 (1.8-7.7); NEUTROPHILS % 74.3 % (36.0-66.0); PLATELET COUNT, AUTOMATED 309 k/mm3 (150-450); RED CELL DISTRIBUTION WIDTH 14.2 % (11.5-14.5); WHITE BLOOD COUNT 5.9 K/mm3 (4.0-10.0)
[2017-02-05 12:34] LABS: ANION GAP 10 MEQ/L (8-16); BLOOD UREA NITROGEN 8 MG/DL (7-18); CALCIUM LEVEL 9.6 MG/DL (8.5-10.1); CARBON DIOXIDE LEVEL 23 MEQ/L (21-32); CHLORIDE LEVEL 107 MEQ/L (98-107); CREATININE FOR GFR 0.75 MG/DL (0.55-1.02); GLOMERULAR FILTRATION RATE > 60.0 (>60); GLUCOSE, FASTING 87 MG/DL (70-105); SODIUM LEVEL 140 MEQ/L (136-145)
--- NOTE | 2017-02-05 13:52 | REP ---
FIRST TRIMESTER ULTRASOUND: Real-time sonographic evaluation of the gravid uterus is performed utilizing transabdominal technique. There is a single living intrauterine gestation. Estimated gestational age is 8 weeks 5 days based on a crown rump length of 21 mm. There is appropriate growth. heart rate 182 beats per minute. There is a subchorionic hemorrhage again seen. It measures 4.1 x 1.3 x 0.8 cm. This has decreased in size when compared to the prior study. No maternal adnexal region abnormalities are seen. Signed by Travis Jeffrey MD 02/05/2017 07:38 P
[2017-02-05] MEDS ORDERED: ONDANSETRON 4 MG ORAL DISINTEGRATING TAB (S0181) PO ONE (14:00)
[2017-02-05] MEDS ORDERED: ZOFR4TAB3 PO (14:34)
[2017-02-05 14:42] VITALS: BP 120/73
== END 2017-02-05 14:45 | disposition home or self-care (01) ==
LOC: M ED 11:02
DX: O21.0 Mild hyperemesis gravidarum (principal); O20.8 Other hemorrhage in early pregnancy; Z3A.08 8 weeks gestation of pregnancy

== ENCOUNTER 2017-02-27 15:06 | Emergency (ER) | payer OTHER ==
[~2017-02-27] VITALS: Ht 167.6 cm; Wt 63.6 kg
[~2017-02-27 15:06] MED LIST changes: +ZOFR4TAB3 PO
[2017-02-27 15:07] VITALS: BP 123/83
== END 2017-02-27 17:26 | disposition left against medical advice (07) ==
LOC: M ED 15:06
DX: O20.9 Hemorrhage in early pregnancy, unspecified (principal); Z53.29 Procedure and treatment not carried out because of patient's decision for other reasons

== ENCOUNTER → 2017-06-30 | Outpatient (CLI) | payer OTHER | LOC: M RAD 11:02 | DX: N63.10 Unspecified lump in the right breast, unspecified quadrant (principal) ==

== ENCOUNTER 2017-07-27 21:01 | Emergency (ER) | payer OTHER ==
[2017-07-27] MEDS: ALBUTEROL SULFATE 2.5 MG/0.5 ML INH NEB SOLN NEB ×2 (22:09→23:00)
[2017-07-27 22:47] LABS: INFLUENZA A AMPLIFICATION NEGATIVE (NEGATIVE); INFLUENZA B AMPLIFICATION NEGATIVE (NEGATIVE)
[2017-07-27] MEDS: ALBUTEROL 90 MCG/ACT 8GM HFA INHALER INH (23:30)
== END 2017-07-27 23:45 | disposition home or self-care (01) ==
LOC: M ED 21:01
DX: J45.901 Unspecified asthma with (acute) exacerbation (principal)
CPT/HCPCS: 71045

== ENCOUNTER 2017-08-27 10:00 | Outpatient (CLI) | payer OTHER | END 2017-08-27 10:40 | disposition home or self-care (01) | LOC: M LDO 10:00 | DX: O47.1 False labor at or after 37 completed weeks of gestation (principal); Z3A.37 37 weeks gestation of pregnancy | CPT/HCPCS: 59025 ==

== ENCOUNTER 2017-09-01 07:55 | Outpatient (CLI) | payer OTHER | END 2017-09-01 10:39 | disposition home or self-care (01) | LOC: M LDO 07:55 | DX: O47.1 False labor at or after 37 completed weeks of gestation (principal); Z3A.38 38 weeks gestation of pregnancy | CPT/HCPCS: 59025 ==

== ENCOUNTER 2017-09-06 03:20 | Inpatient (IN) | payer OTHER ==
[2017-09-06 05:39] LABS: HEMOGLOBIN 11.5 g/dl (12.0-15.5); MEAN CORPUSCULAR HEMOGLOBIN 29.8 pg (27.0-33.0); MEAN CORPUSCULAR HGB CONC 34.8 g/dl (32.0-36.5); MEAN CORPUSCULAR VOLUME 85.5 fl (80.0-96.0); PLATELET COUNT, AUTOMATED 181 10^3/uL (150-450); RED BLOOD COUNT 3.86 10^6/uL (4.00-5.40); RED CELL DISTRIBUTION WIDTH 14.3 % (11.5-14.5); WHITE BLOOD COUNT 9.2 10^3/uL (4.0-10.0)
[2017-09-06] MEDS: LACTATED RINGER'S 1000 ML IV (05:55)
[2017-09-06 06:03] LABS: ALT/SGPT 13 U/L (12-78); AST/SGOT 27 U/L (7-37); BILIRUBIN,TOTAL 0.5 MG/DL (0.2-1.0); CREATININE FOR GFR 0.49 MG/DL (0.55-1.30); GLOMERULAR FILTRATION RATE > 60.0 (>60); LDH LACTATE DEHYDROGENASE 287 U/L (84-246); URIC ACID 2.8 MG/DL (2.6-6.0)
[2017-09-06] MEDS: LR 1,000 ML IV ×2 (06:19→13:05)
[2017-09-06] MEDS: BUTORPHANOL 2 MG/ML INJ (J0595) IV (07:48)
[2017-09-06] MEDS ORDERED: OXYTOCIN 30 UNITS IN 0.9% NaCl 500ML IV BAG (J2590) As Ordered (09:00)
[2017-09-06] MEDS: PRENATAL VITAMINS CHEWABLE TABLET PO (09:00)
[2017-09-06] MEDS: OXYTOCIN DRIP 30 UNITS in APPROPRIATE DILUENT 1 EA IV (11:06)
[2017-09-06] MEDS ORDERED: RHOGAM 300 MCG (1500 IU) INJ (J2790) IM (11:15)
[2017-09-06] MEDS ORDERED: PROMETHAZINE 25 MG TAB PO (11:15)
[2017-09-06] MEDS ORDERED: DIBUCAINE 1% OINTMENT 30GM TOP (11:15)
[2017-09-06] MEDS ORDERED: DOCUSATE SODIUM 100 MG CAP PO (11:15)
[2017-09-06] MEDS ORDERED: MEASLES,MUMPS,RUBELLA VACCINE INJ (MMR-II) (90707) SC (11:15)
[2017-09-06] MEDS ORDERED: MOM 30ML SUSPENSION UDC PO (11:15)
[2017-09-06] MEDS ORDERED: METHYLERGONOVINE MALEATE 0.2 MG TAB PO (11:15)
[2017-09-06] MEDS ORDERED: ONDANSETRON 4MG/2ML VIAL (J2405) IV (11:15)
[2017-09-06] MEDS: IBUPROFEN 800 MG TAB PO ×2 (12:27→20:36)
[2017-09-06] MEDS: ACETAMINOPHEN 500 MG TAB PO (13:24)
[2017-09-07] MEDS: ACETAMINOPHEN 500 MG TAB PO (04:18)
[2017-09-07] MEDS: IBUPROFEN 800 MG TAB PO (04:48)
[2017-09-07] MEDS: PRENATAL VITAMINS CHEWABLE TABLET PO (09:56)
== END 2017-09-07 12:25 | disposition home or self-care (01) | DRG 775 ==
LOC: M LDO 03:20 → M LDI 07:33 → M OBS 11:21
PROC: 10E0XZZ Delivery of Products of Conception, External Approach (ICD-10-PCS; principal; 2017-09-06)
PROC: 10907ZC Drainage of Amniotic Fluid, Therapeutic from Products of Conception, Via Natural or Artificial Opening (ICD-10-PCS; 2017-09-06)
DX: O43.193 Other malformation of placenta, third trimester (principal); Z37.0 Single live birth; Z3A.39 39 weeks gestation of pregnancy

== ENCOUNTER 2018-06-12 07:08 | Emergency (ER) | payer OTHER ==
[~2018-06-12] VITALS: Ht 167.6 cm; Wt 70.5 kg
[2018-06-12 07:08] VITALS: BP 138/97
[~2018-06-12 07:08] MED LIST changes: -ACET50TA PO; +COLA100C5 PO; +DIBU1OIN TOP; +IRON18TA PO; +MAPA500T2 PO; +MOM30SS PO; +VENTAER INH; +ZOFR4TAB14 PO; -ZOFR4TAB3 PO
[2018-06-12] MEDS ORDERED: ACETAMINOPHEN 325 MG TAB PO ONE (07:30)
[2018-06-12] MEDS ORDERED: NAPROXEN 250 MG TAB PO ONE (07:30)
[2018-06-12] MEDS ORDERED: CYCL10TA PO (08:07)
[2018-06-12] MEDS ORDERED: NAPR-50 PO (08:07)
== END 2018-06-12 08:19 | disposition home or self-care (01) ==
LOC: M ED 07:08
DX: S39.012A Strain of muscle, fascia and tendon of lower back, initial encounter (principal); X50.1XXA Overexertion from prolonged static or awkward postures, initial encounter; Y92.9 Unspecified place or not applicable; Y93.9 Activity, unspecified; Y99.9 Unspecified external cause status; J45.909 Unspecified asthma, uncomplicated

== ENCOUNTER 2018-06-27 09:41 | Emergency (ER) | payer OTHER ==
[~2018-06-27] VITALS: Ht 167.6 cm; Wt 72.7 kg
[~2018-06-27 09:41] MED LIST changes: +CYCL10TA PO; +NAPR-50 PO
[2018-06-27 09:42] VITALS: BP 121/80
[2018-06-27] MEDS ORDERED: ONDANSETRON 4 MG ORAL DISINTEGRATING TAB (Q0162 PER 1MG) PO ONE (10:15)
[2018-06-27] MEDS ORDERED: ALBUTEROL SULFATE 2.5 MG/0.5 ML INH NEB SOLN INH ONE (10:15)
[2018-06-27] MEDS ORDERED: ACETAMINOPHEN TAB 650MG DOSE (2X325MG) PO ONE (10:15)
[2018-06-27 10:27] LABS: BASO % 0.2 % (0.0-1.0); EOS # 0.4 10^3/uL (0.0-0.50); EOS % 7.7 % (0.0-3.0); HEMATOCRIT 37.7 % (36.0-47.0); HEMOGLOBIN 12.6 g/dl (12.0-15.5); LYMPH # 2.1 10^3/uL (1.5-6.5); LYMPH % 37.1 % (24.0-44.0); MEAN CORPUSCULAR HEMOGLOBIN 28.4 pg (27.0-33.0); MEAN CORPUSCULAR HGB CONC 33.4 g/dl (32.0-36.5); MEAN CORPUSCULAR VOLUME 85.1 fl (80.0-96.0); MONO # 0.2 10^3/uL (0.0-0.8); MONO % 3.7 % (0.0-5.0); NEUTROPHILS # 2.9 10^3/uL (1.8-7.7); NEUTROPHILS % 51.1 % (36.0-66.0); PLATELET COUNT, AUTOMATED 426 10^3/uL (150-450); RED BLOOD COUNT 4.43 10^6/uL (4.00-5.40); WHITE BLOOD COUNT 5.6 10^3/uL (4.0-10.0)
[2018-06-27 10:52] LABS: BLOOD UREA NITROGEN 8 MG/DL (7-18); CALCIUM LEVEL 9.1 MG/DL (8.5-10.1); CARBON DIOXIDE LEVEL 24 MEQ/L (21-32); CHLORIDE LEVEL 108 MEQ/L (98-107); CREATININE FOR GFR 0.87 MG/DL (0.55-1.30); GLOMERULAR FILTRATION RATE > 60.0 (>60); GLUCOSE, FASTING 90 MG/DL (70-100); POTASSIUM SERUM 3.9 MEQ/L (3.5-5.1); SODIUM LEVEL 139 MEQ/L (136-145)
[2018-06-27] MEDS ORDERED: VENTAER INH (11:09)
[2018-06-27] MEDS ORDERED: MUCI600T37 PO (11:09)
== END 2018-06-27 11:18 | disposition home or self-care (01) ==
LOC: M ED 09:41
DX: J18.9 Pneumonia, unspecified organism (principal); R11.2 Nausea with vomiting, unspecified; R51 Headache
CPT/HCPCS: 80048; 85025; 99282; Q0162

== ENCOUNTER 2020-05-10 20:07 | Emergency (ER) | payer OTHER, SELFPAY ==
[~2020-05-10] VITALS: Ht 167.6 cm; Wt 81.8 kg
[~2020-05-10 20:07] MED LIST changes: +CYCL-707 PO; -CYCL10TA PO; +MUCI600T37 PO; -NAPR-50 PO; +NAPR-837 PO
[2020-05-10] MEDS ORDERED: DERMABOND TOPICAL SKIN ADHESIVE TOP ONE (20:45)
[2020-05-10 21:15] VITALS: BP 135/88
== END 2020-05-10 21:16 | disposition home or self-care (01) ==
LOC: M ED 20:07
DX: S91.311A Laceration without foreign body, right foot, initial encounter (principal); W26.8XXA Contact with other sharp object(s), not elsewhere classified, initial encounter; Y92.018 Other place in single-family (private) house as the place of occurrence of the external cause

== ENCOUNTER 2020-05-13 20:22 | Emergency (ER) | payer OTHER ==
[~2020-05-13] VITALS: Ht 167.6 cm; Wt 83.0 kg
[2020-05-13] MEDS ORDERED: NORCO, ANEXSIA 5/325MG TABLET (HYDROcodone/ACETAMINOPHEN) PO ONE (21:45)
[2020-05-13 21:55] LABS: BASO % 0.2 % (0.0-1.0); EOS # 0.3 10^3/uL (0.0-0.5); EOS % 5.6 % (0.0-3.0); HEMOGLOBIN 11.9 g/dl (12.0-15.5); LYMPH # 1.9 10^3/uL (1.5-5.0); MEAN CORPUSCULAR HEMOGLOBIN 28.3 pg (27.0-33.0); MEAN CORPUSCULAR HGB CONC 33.1 g/dl (32.0-36.5); MEAN CORPUSCULAR VOLUME 85.7 fl (80.0-96.0); MONO # 0.2 10^3/uL (0.0-0.8); MONO % 5.2 % (0.0-5.0); NEUTROPHILS # 2.1 10^3/uL (1.5-8.5); NEUTROPHILS % 46.8 % (36.0-66.0); PLATELET COUNT, AUTOMATED 230 10^3/uL (150-450); WHITE BLOOD COUNT 4.5 10^3/uL (4.0-10.0)
[2020-05-13 22:13] LABS: ERYTHROCYTE SEDIMENTATION RATE 37 mm/hr (0-20)
[2020-05-13] MEDS ORDERED: DOXY100C37 PO (22:41)
[2020-05-13 22:54] VITALS: BP 142/73
--- NOTE | 2020-05-13 22:55 | REPVR ---
PROCEDURE INFORMATION: Exam: XR Right Foot Complete Exam date and time: 05/13/2020 10:04 PM Age: 29 years old Clinical indication: Pain; Foot; Right; Additional info: Swelling, incr. Pain, punture 3 days ago, glued that day TECHNIQUE: Imaging protocol: XR Right foot. Views: 3 or more views. COMPARISON: No relevant prior studies available. FINDINGS: Bones/joints: Normal. Soft tissues: Soft tissue swelling great toe and plantar aspect of the forefoot. IMPRESSION: Soft tissue swelling great toe and plantar aspect of the forefoot. No bony abnormality. Electronically signed by: Rom Briceño On 05/13/2020 22:55:08 PM
[2020-05-13] MEDS ORDERED: DOXYCYCLINE HYCLATE 100MG TABLET PO ONE (23:00)
== END 2020-05-13 22:57 | disposition home or self-care (01) ==
LOC: M ED 20:22
DX: S91.331A Puncture wound without foreign body, right foot, initial encounter (principal); W26.8XXA Contact with other sharp object(s), not elsewhere classified, initial encounter; Y92.89 Other specified places as the place of occurrence of the external cause

== ENCOUNTER 2021-01-26 17:26 | Emergency (ER) | payer OTHER ==
[~2021-01-26] VITALS: Ht 167.6 cm; Wt 78.0 kg
[~2021-01-26 17:26] MED LIST changes: +DOXY1CAP62 PO
[2021-01-26 17:27] VITALS: BP 163/74
== END 2021-01-26 20:21 | disposition left against medical advice (07) ==
LOC: M ED 17:26
DX: Z53.29 Procedure and treatment not carried out because of patient's decision for other reasons (principal)

== ENCOUNTER 2021-02-16 11:19 | Emergency (ER) | payer OTHER ==
[~2021-02-16] VITALS: Ht 167.6 cm; Wt 78.0 kg
[2021-02-16] MEDS ORDERED: NAPR220C14 PO (12:01)
[2021-02-16 13:17] LABS: RSV AMPLIFICATION NEGATIVE (NEGATIVE)
[2021-02-16] MEDS ORDERED: VENTAER INH (13:53)
[2021-02-16 14:27] VITALS: BP 128/73
== END 2021-02-16 14:59 | disposition home or self-care (01) ==
LOC: M ED 11:19
DX: S29.012A Strain of muscle and tendon of back wall of thorax, initial encounter (principal); X58.XXXA Exposure to other specified factors, initial encounter; Y92.89 Other specified places as the place of occurrence of the external cause; U07.1 COVID-19; J45.909 Unspecified asthma, uncomplicated

== ENCOUNTER 2021-10-02 18:47 | Emergency (ER) | payer OTHER ==
[~2021-10-02] VITALS: Ht 167.6 cm; Wt 75.0 kg
[~2021-10-02 18:47] MED LIST changes: +DOXY-443 PO; -DOXY1CAP62 PO; +NAPR220C14 PO
[2021-10-02 19:56] LABS: BASO % 0.2 % (0.0-1.0); EOS # 0.1 10^3/uL (0.0-0.5); EOS % 2.1 % (0.0-3.0); HEMATOCRIT 28.7 % (36.0-47.0); LYMPH # 2.2 10^3/uL (1.5-5.0); LYMPH % 41.3 % (24.0-44.0); MEAN CORPUSCULAR HEMOGLOBIN 23.9 pg (27.0-33.0); MEAN CORPUSCULAR HGB CONC 31.4 g/dl (32.0-36.5); MEAN CORPUSCULAR VOLUME 76.1 fl (80.0-96.0); MONO # 0.3 10^3/uL (0.0-0.8); NEUTROPHILS # 2.7 10^3/uL (1.5-8.5); NEUTROPHILS % 51.2 % (36.0-66.0); PLATELET COUNT, AUTOMATED 291 10^3/uL (150-450); RED BLOOD COUNT 3.77 10^6/uL (4.00-5.40); WHITE BLOOD COUNT 5.4 10^3/uL (4.0-10.0)
[2021-10-02 20:13] LABS: ALBUMIN 3.9 GM/DL (3.2-5.2); ALT/SGPT 13 U/L (12-78); BILIRUBIN,TOTAL 0.2 MG/DL (0.2-1.0); BLOOD UREA NITROGEN 7 MG/DL (7-18); CALCIUM LEVEL 9.2 MG/DL (8.5-10.1); CARBON DIOXIDE LEVEL 24 MEQ/L (21-32); CHLORIDE LEVEL 111 MEQ/L (98-107); CREATININE FOR GFR 0.84 MG/DL (0.55-1.30); GLOMERULAR FILTRATION RATE > 60.0 (>60); GLUCOSE, FASTING 81 MG/DL (70-100); POTASSIUM SERUM 3.5 MEQ/L (3.5-5.1); SODIUM LEVEL 141 MEQ/L (136-145); TOTAL PROTEIN 8.5 GM/DL (6.4-8.2)
[2021-10-02 20:24] LABS: HCG, SERUM QUALITATIVE NEGATIVE (NEGATIVE)
[2021-10-02 21:50] VITALS: BP 161/94
[2021-10-02] MEDS ORDERED: IBUPROFEN 600MG TAB PO ONE (22:15)
[2021-10-02] MEDS ORDERED: ACETAMINOPHEN 500 MG TAB PO ONE (22:15)
[2021-10-02] MEDS ORDERED: dexameTHASONE 4 MG/ML 1ML VIAL (J1100 PER 1MG) PO ONE (23:00)
[2021-10-02] MEDS ORDERED: MAGIC MOUTHWASH *ED ONLY* 5ML ORAL SYRINGE SS ONE (23:00)
[2021-10-02 23:24] LABS: RSV AMPLIFICATION NEGATIVE (NEGATIVE)
[2021-10-02] MEDS ORDERED: MAGICMW SSP (23:48)
[2021-10-03] MEDS ORDERED: HYDR12.55 PO (00:04)
== END 2021-10-03 00:08 | disposition home or self-care (01) ==
LOC: M ED 18:47
DX: R55 Syncope and collapse (principal); D64.9 Anemia, unspecified; J02.9 Acute pharyngitis, unspecified; I10 Essential (primary) hypertension; J45.909 Unspecified asthma, uncomplicated; Z79.899 Other long term (current) drug therapy
CPT/HCPCS: 36415; 80053; 84703; 85025; 87631; 87880; 93005; 99284; J1100

== ENCOUNTER → 2021-10-22 | Outpatient (REF) | payer OTHER ==
[~2021-10-22] MED LIST changes: +HYDR12.55 PO; +MAGICMW SSP
== END ==
LOC: M LAB REF 16:13
PROVIDERS: ATTEND Physician Assistant
DX: J02.9 Acute pharyngitis, unspecified (principal)

== ENCOUNTER → 2021-12-16 | Outpatient (CLI) | payer OTHER | LOC: M WHC 15:05 | PROVIDERS: ATTEND Pediatrics | DX: N63.14 Unspecified lump in the right breast, lower inner quadrant (principal) | CPT/HCPCS: 76642; 77066; G0279 ==

== ENCOUNTER → 2022-02-03 | Outpatient (CLI) | payer OTHER ==
[~2022-02-03] MED LIST changes: +DIAZ5TAB PO
[2022-02-03 14:18] VITALS: BP 104/68
== END ==
LOC: M WHCPRO 12:21
PROVIDERS: ATTEND Surgery
DX: N63.14 Unspecified lump in the right breast, lower inner quadrant (principal)
CPT/HCPCS: 19083; 77065; 88305; G0279

== ENCOUNTER → 2022-08-10 | Outpatient (CLI) | payer OTHER | LOC: M WHC 07:57 | PROVIDERS: ATTEND Nurse Practitioner Women's Health | DX: D24.1 Benign neoplasm of right breast (principal) ==

== ENCOUNTER → 2022-08-31 | Outpatient (CLI) | payer OTHER | LOC: M RAD 16:30 | PROVIDERS: ATTEND Physician Assistant Medical | DX: M25.561 Pain in right knee (principal) ==

== ENCOUNTER → 2023-03-23 | Outpatient (CLI) | payer OTHER, MEDICAID | LOC: M PLAIMG 08:46 | PROVIDERS: ATTEND Physician Assistant Surgical | DX: M25.562 Pain in left knee (principal) ==

== ENCOUNTER 2023-05-31 14:42 | Inpatient (IN) | payer OTHER, MEDICAID ==
[~2023-05-31] VITALS: Ht 167.6 cm; Wt 78.1 kg
[~2023-05-31 14:42] MED LIST changes: +ONDA4TAB6 PO; +OSEL75CA PO
[2023-05-31] MEDS ORDERED: KETOROLAC 30 MG/ML 1ML VIAL IV ONE (20:00)
[2023-05-31] MEDS ORDERED: IPRATROPIUM 0.5MG/ALBUTEROL 2.5MG INH SOL UD 3ML (DUONEB) NEB ONE (20:00)
[2023-05-31 20:28] LABS: BASO % 0.2 % (0.0-1.0); EOS # 0.1 10^3/uL (0.0-0.5); EOS % 1.1 % (0.0-3.0); HEMATOCRIT 27.3 % (36.0-47.0); HEMOGLOBIN 8.7 g/dl (12.0-15.5); LYMPH # 1.6 10^3/uL (1.5-5.0); LYMPH % 27.8 % (24.0-44.0); MEAN CORPUSCULAR HEMOGLOBIN 24.2 pg (27.0-33.0); MEAN CORPUSCULAR HGB CONC 31.9 g/dl (32.0-36.5); MEAN CORPUSCULAR VOLUME 75.8 fl (80.0-96.0); MONO # 0.5 10^3/uL (0.0-0.8); MONO % 7.9 % (2.0-8.0); NEUTROPHILS # 3.6 10^3/uL (1.5-8.5); NEUTROPHILS % 62.8 % (36.0-66.0); PLATELET COUNT, AUTOMATED 299 10^3/uL (150-450); WHITE BLOOD COUNT 5.7 10^3/uL (4.0-10.0)
[2023-05-31 20:51] LABS: BLOOD UREA NITROGEN 6 MG/DL (9-23); CALCIUM LEVEL 8.4 MG/DL (8.5-10.1); CARBON DIOXIDE LEVEL 27 MMOL/L (20-31); CHLORIDE LEVEL 110 MMOL/L (98-107); CREATININE FOR GFR 0.56 MG/DL (0.55-1.30); GLOMERULAR FILTRATION RATE > 60.0 (>60); GLUCOSE, FASTING 85 MG/DL (60-100); POTASSIUM SERUM 3.5 MMOL/L (3.5-5.1); SODIUM LEVEL 142 MMOL/L (136-145)
[2023-05-31] MEDS ORDERED: NS 1,000 ML IV ONE (21:05)
[2023-05-31 21:33] LABS: HCG, SERUM QUALITATIVE NEGATIVE (NEGATIVE)
[2023-05-31] MEDS ORDERED: ISOVUE-370 76% 100ML VIAL As Ordered ONE (21:38)
[2023-05-31] MEDS ORDERED: HEPARIN DRIP 25,000 UNITS in IV 1 EA IV SCH (22:35)
[2023-05-31] MEDS ORDERED: HEPARIN SOD (PORCINE) 5000UNITS/ML 1ML VIAL/SYRINGE IV PRN (22:35)
[2023-05-31] MEDS ORDERED: HEPARIN SOD (PORCINE) 5000UNITS/ML 1ML VIAL/SYRINGE IV ONE (22:35)
[2023-05-31 22:45] LABS: CK-MB VALUE MASS < 1.0 NG/ML (<3.6)
[2023-05-31 22:49] LABS: CPK CREATINE PHOSPHOKINASE 121 U/L (34-145); MB/CK RELATIVE INDEX 0.82 (< OR =4)
[2023-05-31] MEDS ORDERED: ALBU6.7H6 INH (23:32)
[2023-05-31] MEDS ORDERED: IRON65TA2 PO (23:32)
[2023-05-31] MEDS ORDERED: HOME MED LIST COMPLETE! XX SCH (23:35)
[2023-06-01] VITALS (7 sets, daily range): BP systolic 104–137; BP diastolic 63–74; PULSE 70; TEMP 97.1–99.7; O2SAT 95–100
[2023-06-01] MEDS ORDERED: HYDROMORPHONE HCL 0.5 MG/ 0.5 ML SYRINGE IV PRN (00:55)
[2023-06-01] MEDS ORDERED: ALBUTEROL SULFATE 2.5MG/0.5ML INH NEB SOLN NEB PRN (00:55)
[2023-06-01] MEDS ORDERED: HEPARIN SOD (PORCINE) 5000UNITS/ML 1ML VIAL/SYRINGE IV PRN (00:55)
[2023-06-01] MEDS: NS 1,000 ML IV SCH ×2 (01:39→21:13)
[2023-06-01] MEDS: HEPARIN DRIP 25,000 UNITS in IV 1 EA IV SCH (01:49)
[2023-06-01 02:01] LABS: HEMATOCRIT 24.5 % (36.0-47.0); HEMOGLOBIN 7.7 g/dl (12.0-15.5); MEAN CORPUSCULAR HEMOGLOBIN 23.9 pg (27.0-33.0); MEAN CORPUSCULAR HGB CONC 31.4 g/dl (32.0-36.5); MEAN CORPUSCULAR VOLUME 76.1 fl (80.0-96.0); PLATELET COUNT, AUTOMATED 224 10^3/uL (150-450); RED BLOOD COUNT 3.22 10^6/uL (4.00-5.40); WHITE BLOOD COUNT 5.7 10^3/uL (4.0-10.0)
[2023-06-01 02:15] LABS: IRON (FE) 17 UG/DL (50-170); PERCENT SATURATION 4.8 % (13.2-45.0); TOTAL IRON BINDING CAPACITY 351 UG/DL (250-425)
[2023-06-01 02:17] LABS: FERRITIN 9.4 NG/ML (7.3-270.7)
[2023-06-01 02:33] LABS: INR 1.25; PROTHROMBIN TIME 15.3 SECONDS (12.5-14.5)
[2023-06-01 02:48] LABS: RSV AMPLIFICATION NEGATIVE (NEGATIVE)
[2023-06-01 03:43] LABS: PARTIAL THROMBOPLASTIN TIME > 240.0 SECONDS (24.8-34.2)
[2023-06-01] MEDS ORDERED: ONDANSETRON 4MG ORAL DISINTEGRATING TAB PO ONE (04:45)
[2023-06-01] MEDS ORDERED: PROMETHAZINE 25MG/ML 1ML VIAL IV ONE (04:50)
[2023-06-01 06:48] LABS: HEMOGLOBIN 7.3 g/dl (12.0-15.5); MEAN CORPUSCULAR HEMOGLOBIN 24.1 pg (27.0-33.0); MEAN CORPUSCULAR HGB CONC 31.7 g/dl (32.0-36.5); MEAN CORPUSCULAR VOLUME 75.9 fl (80.0-96.0); PLATELET COUNT, AUTOMATED 222 10^3/uL (150-450); RED BLOOD COUNT 3.03 10^6/uL (4.00-5.40); WHITE BLOOD COUNT 4.1 10^3/uL (4.0-10.0)
[2023-06-01 07:33] LABS: ALBUMIN 2.8 G/DL (3.2-5.2); ALKALINE PHOSPHATASE 57 U/L (46-116); ALT/SGPT < 9 U/L (7.0-40); AST/SGOT 13 U/L (<34); BILIRUBIN,TOTAL 0.3 MG/DL (0.3-1.2); BLOOD UREA NITROGEN 5 MG/DL (9-23); CARBON DIOXIDE LEVEL 26 MMOL/L (20-31); CHLORIDE LEVEL 109 MMOL/L (98-107); CREATININE FOR GFR 0.52 MG/DL (0.55-1.30); GLOMERULAR FILTRATION RATE > 60.0 (>60); GLUCOSE, FASTING 90 MG/DL (60-100); SODIUM LEVEL 141 MMOL/L (136-145); TOTAL PROTEIN 6.2 G/DL (5.7-8.2)
[2023-06-01] MEDS ORDERED: POTASSIUM CHLORIDE 10MEQ SR TABLET PO ONE ×2 (10:55)
[2023-06-01 12:39] LABS: FERRITIN 9.2 NG/ML (7.3-270.7)
[2023-06-01] MEDS ORDERED: PERCOCET 5MG/325MG TAB PO PRN (17:40)
[2023-06-01] MEDS: PERCOCET 5MG/325MG TAB PO PRN (18:25)
[2023-06-01] MEDS ORDERED: BENZONATATE 100MG CAPSULE PO ONE (20:15)
[2023-06-02] VITALS (10 sets, daily range): BP systolic 122–147; BP diastolic 75–88; TEMP 97.3–97.8; O2SAT 99–100
[2023-06-02] MEDS: PERCOCET 5MG/325MG TAB PO PRN ×2 (00:11→15:28)
[2023-06-02] MEDS: HEPARIN DRIP 25,000 UNITS in IV 1 EA IV SCH (05:04)
[2023-06-02] MEDS ORDERED: LevoFLOXacin 750 MG TABLET PO SCH (06:00)
[2023-06-02 06:47] LABS: HEMATOCRIT 24.6 % (36.0-47.0); HEMOGLOBIN 7.7 g/dl (12.0-15.5)
[2023-06-02] MEDS ORDERED: PRIL20TA2 PO (07:40)
[2023-06-02] MEDS ORDERED: XARE15TA PO (07:40)
[2023-06-02] MEDS ORDERED: SENO8.6T10 PO (07:40)
[2023-06-02] MEDS ORDERED: MIRA3350 PO (07:40)
[2023-06-02] MEDS ORDERED: FERR325T3 PO (07:40)
[2023-06-02] MEDS ORDERED: CARA1TAB6 PO (07:40)
[2023-06-02] MEDS ORDERED: XARE20TA PO (07:40)
[2023-06-02] MEDS ORDERED: VITA500C24 PO (07:40)
[2023-06-02] MEDS ORDERED: RIVAROXABAN 15MG TAB (XARELTO) PO SCH (08:00)
[2023-06-02 11:18] LABS: PTT LUPUS TYPE ANTICOAG SCREEN 1.16 (0-1.20)
[2023-06-02] MEDS ORDERED: ELIQ5TAB PO (11:22)
[2023-06-02] MEDS ORDERED: LEVO1TAB40 PO (11:54)
[2023-06-02 13:08] LABS: MAGNESIUM LEVEL 1.6 MG/DL (1.8-2.4); POTASSIUM SERUM 3.3 MMOL/L (3.5-5.1)
[2023-06-02] MEDS ORDERED: ONDANSETRON 4MG 2ML VIAL IV SCH (14:00)
[2023-06-02] MEDS ORDERED: POTASSIUM CHLORIDE 10MEQ SR TABLET PO ONE (15:00)
[2023-06-02] MEDS ORDERED: SUCRALFATE SUSP 1GM/10ML UD PO ONE (15:25)
[2023-06-02] MEDS ORDERED: MORPHINE 2 MG/ML 1ML VIAL IV ONE (15:30)
[2023-06-02] MEDS ORDERED: MIRALAX *UNIT DOSE* 17GM PACKET PO PRN (15:50)
[2023-06-02] MEDS ORDERED: SENOKOT S TAB PO PRN (15:50)
[2023-06-02] MEDS ORDERED: NITROGLYCERIN 0.4MG SUBL TABLET SL PRN (16:20)
[2023-06-02] MEDS ORDERED: APIXABAN 5 MG TAB (ELIQUIS) PO ONE (17:25)
[2023-06-02 17:26] LABS: CK-MB VALUE MASS < 1.0 NG/ML (<3.6)
[2023-06-02 17:27] LABS: MAGNESIUM LEVEL 1.6 MG/DL (1.8-2.4); POTASSIUM SERUM 3.8 MMOL/L (3.5-5.1)
[2023-06-02 17:29] LABS: CPK CREATINE PHOSPHOKINASE 111 U/L (34-145)
[2023-06-02] MEDS ORDERED: SUCRALFATE SUSP 1GM/10ML UD PO SCH (17:30)
[2023-06-02 17:36] LABS: PROCALCITONIN <0.04 ng/ml
[2023-06-02 17:44] LABS: HEMATOCRIT 32.8 % (36.0-47.0)
[2023-06-02 17:50] LABS: HEMOGLOBIN 10.7 g/dl (12.0-15.5)
[2023-06-02] MEDS ORDERED: APIXABAN 5 MG TAB (ELIQUIS) PO SCH (21:00)
[2023-06-02] MEDS ORDERED: FERROUS SULFATE 325MG TAB PO SCH (21:00)
[2023-06-03] MEDS ORDERED: PANTOPRAZOLE 40MG TAB (PROTONIX) PO SCH (09:00)
[2023-06-03] MEDS ORDERED: ASCORBIC ACID 500 MG TAB PO SCH (09:00)
[2023-06-03 10:08] LABS: ANTI THROMBIN 3 ANTIGEN IMMUNO 95 % (72-124); ANTI THROMBIN 3 FUNCT ACTIVITY 108 % (75-135); CARDIOLIPIN IGA ANTIBODY <9 APL U/mL (0-11); CARDIOLIPIN IGG ANTIBODY <9 GPL U/mL (0-14); CARDIOLIPIN IGM ANTIBODY <9 MPL U/mL (0-12); PHOSPHOLIPIDS LEVEL 124 mg/dL (151-288); PROTEIN C FUNCTIONAL ACTIVITY 78 % (73-180); PROTEIN S FUNCTIONAL ACTIVITY 77 % (63-140)
[2023-06-22] MEDS ORDERED: RIVAROXABAN 20MG TAB (XARELTO) PO SCH (18:00)
== END 2023-06-02 17:50 | disposition home health service (06) | DRG 175 ==
LOC: M ED 14:42 → M ED INP 14:43 → M PCU 06-01 04:40 → OBSVTOIN 06-01 13:04
PROVIDERS: ADMIT Internal Medicine; ATTEND General Practice
PROC: B246ZZZ Ultrasonography of Right and Left Heart (ICD-10-PCS; principal; 2023-06-01)
PROC: 30233N1 Transfusion of Nonautologous Red Blood Cells into Peripheral Vein, Percutaneous Approach (ICD-10-PCS; 2023-06-02)
DX: I26.99 Other pulmonary embolism without acute cor pulmonale (principal); J18.9 Pneumonia, unspecified organism; D50.9 Iron deficiency anemia, unspecified; Z79.899 Other long term (current) drug therapy; I08.1 Rheumatic disorders of both mitral and tricuspid valves

== ENCOUNTER 2023-06-17 19:40 | Emergency (ER) | payer OTHER, MEDICAID ==
[~2023-06-17] VITALS: Ht 167.6 cm; Wt 73.2 kg
[~2023-06-17 19:40] MED LIST changes: +ALBU6.7H6 INH; +CARA1TAB6 PO; +ELIQ5TAB PO; +FERR325T3 PO; +IRON65TA2 PO; +LEVO1TAB40 PO; +MIRA3350 PO; +PRIL20TA2 PO; +SENO8.6T10 PO; +VITA500C24 PO; +XARE15TA PO; +XARE20TA PO
[2023-06-17 20:45] LABS: BASO % 0.1 % (0.0-1.0); EOS # 0.2 10^3/uL (0.0-0.5); EOS % 2.2 % (0.0-3.0); HEMATOCRIT 32.2 % (36.0-47.0); HEMOGLOBIN 10.4 g/dl (12.0-15.5); LYMPH % 27.2 % (24.0-44.0); MEAN CORPUSCULAR HEMOGLOBIN 25.6 pg (27.0-33.0); MEAN CORPUSCULAR HGB CONC 32.3 g/dl (32.0-36.5); MEAN CORPUSCULAR VOLUME 79.3 fl (80.0-96.0); MONO # 0.3 10^3/uL (0.0-0.8); MONO % 4.2 % (2.0-8.0); NEUTROPHILS # 4.8 10^3/uL (1.5-8.5); NEUTROPHILS % 66.2 % (36.0-66.0); PLATELET COUNT, AUTOMATED 332 10^3/uL (150-450); RED BLOOD COUNT 4.06 10^6/uL (4.00-5.40); WHITE BLOOD COUNT 7.3 10^3/uL (4.0-10.0)
[2023-06-17 21:16] LABS: RSV AMPLIFICATION NEGATIVE (NEGATIVE)
[2023-06-17] MEDS: ONDANSETRON 4MG 2ML VIAL IV ONE (21:35)
[2023-06-17] MEDS: MORPHINE 4 MG/ML 1ML VIAL IV PRN (21:35)
[2023-06-17 21:50] LABS: BLOOD UREA NITROGEN 14 MG/DL (9-23); CALCIUM LEVEL 9.2 MG/DL (8.5-10.1); CARBON DIOXIDE LEVEL 24 MMOL/L (20-31); CHLORIDE LEVEL 106 MMOL/L (98-107); CK-MB VALUE MASS < 1.0 NG/ML (<3.6); CPK CREATINE PHOSPHOKINASE 159 U/L (34-145); CREATININE FOR GFR 0.64 MG/DL (0.55-1.30); GLOMERULAR FILTRATION RATE > 60.0 (>60); GLUCOSE, FASTING 86 MG/DL (60-100); MB/CK RELATIVE INDEX 0.62 (< OR =4); POTASSIUM SERUM 4.4 MMOL/L (3.5-5.1); SODIUM LEVEL 139 MMOL/L (136-145)
[2023-06-17 22:46] LABS: CK-MB VALUE MASS < 1.0 NG/ML (<3.6)
[2023-06-17 22:47] LABS: CPK CREATINE PHOSPHOKINASE 127 U/L (34-145); MB/CK RELATIVE INDEX 0.78 (< OR =4)
[2023-06-18] MEDS ORDERED: ISOVUE-370 76% 100ML VIAL As Ordered ONE (00:31)
[2023-06-18] MEDS ORDERED: PRED20TA PO (02:40)
[2023-06-18 02:45] VITALS: BP 132/72; TEMP 98.3; O2SAT 100
[2023-06-18] MEDS: predniSONE 20 MG TAB PO ONE (02:51)
== END 2023-06-18 03:00 | disposition home or self-care (01) ==
LOC: EDBD 19:40 → M ED 19:40
DX: R07.9 Chest pain, unspecified (principal); I26.99 Other pulmonary embolism without acute cor pulmonale; Z79.51 Long term (current) use of inhaled steroids; Z79.52 Long term (current) use of systemic steroids; Z79.899 Other long term (current) drug therapy
CPT/HCPCS: 71045; 71275; 80048; 82550; 82553; 83880; 84484; 85025; 87631; 93005; 93041; 94760; 96374; 96375; 99285; J2405; J7512; Q9967

== ENCOUNTER → 2023-07-01 | Outpatient (REF) | payer OTHER, MEDICAID ==
[~2023-07-01] MED LIST changes: +PRED20TA PO
[2023-07-01 18:28] LABS: ALKALINE PHOSPHATASE 67 U/L (46-116); ALT/SGPT 12 U/L (7.0-40); AST/SGOT 15 U/L (<34); BILIRUBIN,TOTAL 0.5 MG/DL (0.3-1.2); BLOOD UREA NITROGEN 11 MG/DL (9-23); CALCIUM LEVEL 9.5 MG/DL (8.5-10.1); CARBON DIOXIDE LEVEL 25 MMOL/L (20-31); CHLORIDE LEVEL 109 MMOL/L (98-107); GLOMERULAR FILTRATION RATE > 60.0 (>60); GLUCOSE, FASTING 75 MG/DL (60-100); IRON (FE) 64 UG/DL (50-170); POTASSIUM SERUM 4.1 MMOL/L (3.5-5.1); SODIUM LEVEL 139 MMOL/L (136-145); TOTAL IRON BINDING CAPACITY 399 UG/DL (250-425); TOTAL PROTEIN 8.2 G/DL (5.7-8.2)
[2023-07-01 18:29] LABS: BASO % 0.3 % (0.0-1.0); EOS # 0.3 10^3/uL (0.0-0.5); EOS % 4.4 % (0.0-3.0); HEMATOCRIT 36.3 % (36.0-47.0); HEMOGLOBIN 11.6 g/dl (12.0-15.5); LYMPH # 1.9 10^3/uL (1.5-5.0); LYMPH % 33.9 % (24.0-44.0); MEAN CORPUSCULAR HEMOGLOBIN 25.8 pg (27.0-33.0); MEAN CORPUSCULAR VOLUME 80.7 fl (80.0-96.0); MONO # 0.3 10^3/uL (0.0-0.8); MONO % 5.9 % (2.0-8.0); NEUTROPHILS # 3.2 10^3/uL (1.5-8.5); NEUTROPHILS % 55.3 % (36.0-66.0); PLATELET COUNT, AUTOMATED 244 10^3/uL (150-450); WHITE BLOOD COUNT 5.7 10^3/uL (4.0-10.0)
[2023-07-01 18:30] LABS: FERRITIN 9.8 NG/ML (7.3-270.7); THYROID STIMULATING HORMONE 1.359 uIU/ML (0.55-4.78)
[2023-07-01 18:41] LABS: HEMOGLOBIN A1c 5.4 % (4.0-6.0)
== END ==
LOC: M LAB REF 17:42
PROVIDERS: ATTEND Physician Assistant
DX: D50.9 Iron deficiency anemia, unspecified (principal); R63.0 Anorexia

== ENCOUNTER 2023-07-13 08:29 | Day surgery (SDC) | payer OTHER, MEDICAID ==
[~2023-07-13] VITALS: Ht 167.6 cm; Wt 73.7 kg
[2023-07-13] MEDS: NS 1,000 ML IV ONE (08:46)
[2023-07-13] MEDS ORDERED: fentaNYL 100 MCG/2 ML INJECTION As Ordered ONE (09:50)
[2023-07-13 09:59] VITALS: BP 120/86; TEMP 96.9; O2SAT 100
== END 2023-07-13 10:31 | disposition home or self-care (01) ==
LOC: M OPP 08:29
PROVIDERS: ATTEND Surgery
DX: D50.9 Iron deficiency anemia, unspecified (principal); Z53.09 Procedure and treatment not carried out because of other contraindication; I49.9 Cardiac arrhythmia, unspecified

== ENCOUNTER 2023-08-11 20:28 | Emergency (ER) | payer OTHER, MEDICAID ==
[~2023-08-11] VITALS: Ht 167.6 cm; Wt 76.2 kg
[2023-08-11 21:12] LABS: BASO % 0.4 % (0.0-1.0); EOS # 0.2 10^3/uL (0.0-0.5); EOS % 4.1 % (0.0-3.0); HEMATOCRIT 32.1 % (36.0-47.0); HEMOGLOBIN 10.5 g/dl (12.0-15.5); LYMPH # 2.3 10^3/uL (1.5-5.0); LYMPH % 44.1 % (24.0-44.0); MEAN CORPUSCULAR HEMOGLOBIN 26.8 pg (27.0-33.0); MEAN CORPUSCULAR HGB CONC 32.7 g/dl (32.0-36.5); MEAN CORPUSCULAR VOLUME 81.9 fl (80.0-96.0); MONO # 0.3 10^3/uL (0.0-0.8); MONO % 5.3 % (2.0-8.0); NEUTROPHILS # 2.4 10^3/uL (1.5-8.5); NEUTROPHILS % 45.7 % (36.0-66.0); PLATELET COUNT, AUTOMATED 248 10^3/uL (150-450); RED BLOOD COUNT 3.92 10^6/uL (4.00-5.40); WHITE BLOOD COUNT 5.1 10^3/uL (4.0-10.0)
[2023-08-11 21:24] LABS: INR 1.06; PROTHROMBIN TIME 13.4 SECONDS (12.5-14.5)
[2023-08-11 21:45] LABS: ALBUMIN 3.6 G/DL (3.2-5.2); ALKALINE PHOSPHATASE 83 U/L (46-116); ALT/SGPT 13 U/L (7.0-40); AST/SGOT 15 U/L (<34); BILIRUBIN,DIRECT < 0.1 MG/DL (<0.4); BILIRUBIN,TOTAL 0.3 MG/DL (0.3-1.2); BLOOD UREA NITROGEN 11 MG/DL (9-23); CALCIUM LEVEL 9.3 MG/DL (8.5-10.1); CARBON DIOXIDE LEVEL 25 MMOL/L (20-31); CHLORIDE LEVEL 106 MMOL/L (98-107); CK-MB VALUE MASS < 1.0 NG/ML (<3.6); CPK CREATINE PHOSPHOKINASE 159 U/L (34-145); CREATININE FOR GFR 0.63 MG/DL (0.55-1.30); GLOMERULAR FILTRATION RATE > 60.0 (>60); GLUCOSE, FASTING 79 MG/DL (60-100); MAGNESIUM LEVEL 1.7 MG/DL (1.8-2.4); MB/CK RELATIVE INDEX 0.62 (< OR =4); POTASSIUM SERUM 3.2 MMOL/L (3.5-5.1); SODIUM LEVEL 139 MMOL/L (136-145); TOTAL PROTEIN 7.6 G/DL (5.7-8.2)
[2023-08-11 21:47] LABS: FREE T4 1.04 NG/DL (0.89-1.76); PARTIAL THROMBOPLASTIN TIME 31.5 SECONDS (24.8-34.2); THYROID STIMULATING HORMONE 1.213 uIU/ML (0.55-4.78)
[2023-08-11] MEDS ORDERED: ISOVUE-370 76% 100ML VIAL As Ordered ONE (21:52)
[2023-08-11] MEDS: POTASSIUM CHLORIDE 10MEQ SR TABLET PO ONE (22:07)
[2023-08-11] MEDS: MAG SULF 1GM/100ML (MAG RUN) 1 GM in IV 1 EA IV ONE (22:08)
[2023-08-11 22:11] LABS: HCG, SERUM QUALITATIVE NEGATIVE (NEGATIVE)
[2023-08-11] MEDS: KETOROLAC 30 MG/ML 1ML VIAL IV ONE (23:47)
[2023-08-11 23:55] LABS: CK-MB VALUE MASS < 1.0 NG/ML (<3.6)
[2023-08-12 00:19] LABS: CPK CREATINE PHOSPHOKINASE 140 U/L (34-145); MB/CK RELATIVE INDEX 0.71 (< OR =4)
[2023-08-12 01:21] VITALS: BP 118/69; TEMP 98; O2SAT 99
== END 2023-08-12 01:23 | disposition home or self-care (01) ==
LOC: M ED 20:28
DX: R07.9 Chest pain, unspecified (principal); I45.10 Unspecified right bundle-branch block; J45.909 Unspecified asthma, uncomplicated; Z79.52 Long term (current) use of systemic steroids; Z79.01 Long term (current) use of anticoagulants; Z79.899 Other long term (current) drug therapy
CPT/HCPCS: 71045; 71275; 80048; 80076; 82550; 82553; 83735; 84439; 84443; 84484; 84703; 85025; 85610; 85730; 93005; 96365; 96375; 99284; J1885; J3475; Q9967

== ENCOUNTER 2023-11-05 23:23 | Emergency (ER) | payer OTHER ==
[~2023-11-05] VITALS: Ht 167.6 cm; Wt 74.3 kg
[~2023-11-05 23:23] MED LIST changes: +DOXY-323 PO; -DOXY-443 PO; +ONDA-282 PO; -ONDA4TAB6 PO
[2023-11-05 23:24] VITALS: BP 138/85; TEMP 97.2; O2SAT 100
[2023-11-06] MEDS ORDERED: AMOX875T2 PO (00:23)
[2023-11-06] MEDS: ACETAMINOPHEN 500 MG TAB PO ONE (00:29)
[2023-11-06] MEDS: AUGMENTIN 875 MG TAB PO ONE (00:29)
== END 2023-11-06 00:59 | disposition home or self-care (01) ==
LOC: M ED 23:23
DX: K04.7 Periapical abscess without sinus (principal); I10 Essential (primary) hypertension; Z86.711 Personal history of pulmonary embolism; Z79.01 Long term (current) use of anticoagulants

== ENCOUNTER → 2023-11-21 | Outpatient (REF) | payer OTHER ==
[~2023-11-21] MED LIST changes: +AMOX875T2 PO
[2023-11-21 17:07] LABS: BASO % 0.4 % (0.0-1.0); EOS # 0.2 10^3/uL (0.0-0.5); EOS % 5.3 % (0.0-3.0); HEMATOCRIT 30.3 % (36.0-47.0); HEMOGLOBIN 10.1 g/dl (12.0-15.5); LYMPH # 2.1 10^3/uL (1.5-5.0); LYMPH % 47.7 % (24.0-44.0); MEAN CORPUSCULAR HEMOGLOBIN 26.3 pg (27.0-33.0); MEAN CORPUSCULAR HGB CONC 33.3 g/dl (32.0-36.5); MEAN CORPUSCULAR VOLUME 78.9 fl (80.0-96.0); MONO # 0.3 10^3/uL (0.0-0.8); NEUTROPHILS # 1.8 10^3/uL (1.5-8.5); NEUTROPHILS % 40.4 % (36.0-66.0); PLATELET COUNT, AUTOMATED 230 10^3/uL (150-450); RED BLOOD COUNT 3.84 10^6/uL (4.00-5.40); WHITE BLOOD COUNT 4.5 10^3/uL (4.0-10.0)
[2023-11-21 17:20] LABS: INR 1.06; PARTIAL THROMBOPLASTIN TIME 30.4 SECONDS (24.8-34.2); PROTHROMBIN TIME 13.4 SECONDS (12.5-14.5)
== END ==
LOC: M LAB REF 16:59
PROVIDERS: ATTEND Physician Assistant
DX: I26.99 Other pulmonary embolism without acute cor pulmonale (principal); D50.9 Iron deficiency anemia, unspecified

== ENCOUNTER 2023-12-04 20:45 | Emergency (ER) | payer OTHER ==
[~2023-12-04] VITALS: Ht 167.6 cm; Wt 74.6 kg
[2023-12-04 20:46] VITALS: BP 136/83; TEMP 98.5; O2SAT 99
== END 2023-12-04 22:52 | disposition left against medical advice (07) ==
LOC: M ED 20:45
DX: Z53.21 Procedure and treatment not carried out due to patient leaving prior to being seen by health care provider (principal)

== ENCOUNTER 2023-12-05 01:00 | Emergency (ER) | payer OTHER ==
[~2023-12-05] VITALS: Ht 167.6 cm; Wt 75.5 kg
[2023-12-05 03:53] VITALS: BP 117/81; TEMP 98.2; O2SAT 100
== END 2023-12-05 05:55 | disposition left against medical advice (07) ==
LOC: M ED 01:00
DX: Z53.21 Procedure and treatment not carried out due to patient leaving prior to being seen by health care provider (principal)